=== PATIENT | female | born 1935 | race Caucasian/White ===

== ENCOUNTER 2018-03-18 02:05 | Emergency (ER) | payer OTHER ==
[2018-03-18] MEDS: DIPHTH/TET/ACEL PERTUSS (ADULT) 0.5 ML VIAL IM* (02:30)
[2018-03-18] MEDS: ALBUTEROL 0.083% (NEB) 2.5 MG/3 ML AMP NEB (02:42)
[2018-03-18] MEDS: IPRATROPIUM (NEB) 0.5 MG/2.5 ML AMP NEB (02:42)
== END 2018-03-18 05:00 | disposition home or self-care (01) ==
LOC: E/R 02:05
DX: S00.81XA Abrasion of other part of head, initial encounter (principal); I11.0 Hypertensive heart disease with heart failure; I50.9 Heart failure, unspecified; E11.9 Type 2 diabetes mellitus without complications; R51 Headache; R06.02 Shortness of breath; W18.30XA Fall on same level, unspecified, initial encounter; Y92.009 Unspecified place in unspecified non-institutional (private) residence as the place of occurrence of the external cause; Z79.01 Long term (current) use of anticoagulants
CPT/HCPCS: 70450; 72170; 94664; 99284-25